=== PATIENT | male | born 2000 | race Caucasian/White ===

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

== ENCOUNTER 2019-01-24 21:51 | Emergency (ER) | payer MEDICAID ==
[2019-01-24 21:53] VITALS: O2SAT 99
--- NOTE | 2019-01-24 22:03 | ERPHSYRPT ---
- History of Present Illness Time Seen by Provider: 01/24/19 21:59 Source: patient, EMS, police Physician History: 18 y/o white male presents via ems at the request of the police. pt here for medical clearance for skilled nursing. pt has been on the run from police for several days. pt has no complaints. Timing/Duration: today Severity of Symptoms-Max: mild Severity of Symptoms-Current: mild Context related to: legal problems Suicidal thoughts: other (no) Associated Symptoms: denies symptoms Previous symptoms: same symptoms as today Allergies/Adverse Reactions: No Known Drug Allergies Allergy (Unverified 12/02/15 00:55) Home Medications: No Reportable Medications [No Reported Medications] 12/01/18 [History] Hx Tetanus, Diphtheria Vaccination/Date Given: Yes Hx Influenza Vaccination/Date Given: No Hx Pneumococcal Vaccination/Date Given: No - Past Medical History Pertinent Past Medical History: No Neurological History: No Pertinent History ENT History: No Pertinent History Cardiac History: No Pertinent History Respiratory History: No Pertinent History Endocrine Medical History: No Pertinent History Musculoskeletal History: No Pertinent History GI Medical History: No Pertinent History History: No Pertinent History Psycho-Social History: Attention Deficit Disorder Male Reproductive Disorders: No Pertinent History - Past Surgical History Past Surgical History: No Neuro Surgical History: No Pertinent History Cardiac: No Pertinent History Respiratory: No Pertinent History Gastrointestinal: No Pertinent History Genitourinary: No Pertinent History Musculoskeletal: No Pertinent History Male Surgical History: No Pertinent History - Social History Smoking Status: Current every day smoker Exposure to second hand smoke: No Drug Use: marijuana, methamphetamines, other Patient Lives Alone: No - Review of Systems Constitutional: No Symptoms Eyes: No Symptoms Ears, Nose, & Throat: No Symptoms Respiratory: No Symptoms Cardiac: No Symptoms Abdominal/Gastrointestinal: No Symptoms Genitourinary Symptoms: No Symptoms Musculoskeletal: No Symptoms Skin: No Symptoms Neurological: No Symptoms Psychological: No Symptoms Endocrine: No Symptoms Hematologic/Lymphatic: No Symptoms Immunological/Allergic: No Symptoms All Other Systems: Reviewed and Negative - Nursing Vital Signs Nursing Vital Signs: Initial Vital Signs Temperature 98.8 F 01/24/19 21:52 Pulse Rate 88 01/24/19 21:52 Respiratory Rate 17 01/24/19 21:52 Blood Pressure 135/83 01/24/19 21:52 O2 Sat by Pulse Oximetry 99 01/24/19 21:52 Pain Scale Pain Intensity 0 - Physical Exam General Appearance: no apparent distress, alert Eyes, Ears, Nose, Throat Exam: normal ENT inspection, moist mucous membranes Neck Exam: normal inspection, non-tender, supple, full range of motion Respiratory Exam: normal breath sounds, lungs clear, airway intact, No chest tenderness, No respiratory distress Cardiovascular Exam: regular rate/rhythm, normal heart sounds, normal peripheral pulses Gastrointestinal/Abdominal Exam: soft, normal bowel sounds, No tenderness Extremities Exam: normal inspection, normal range of motion, No evidence of injury Current Suicidality: denies suicide plan Neurological Exam: alert, normal mood/affect, calm, raw sampler II-XII nml as tested Appearance: no memory impairment, impaired insight Behavior/Eye Contact/Speech: alert & cooperative Thoughts/Hallucinations: normal thought pattern, no apparent hallucination Skin Exam: normal color, warm SpO2 Interpretation: normal SpO2: 99 O2 Delivery: Room Air - Course Nursing assessment & vital signs reviewed: Yes EKG Interpreted by Me: RATE (61), Sinus Rhythm, NORMAL AXIS, NORMAL INTERVALS, NORMAL QRS, Other (no comparison ekg) Ordered Tests: Active Orders 24 hr Category Date Time Status EKG-ER Only STAT Care 01/24/19 22:03 Active IV Insertion STAT Care 01/24/19 22:04 Active BMP Stat Lab 01/24/19 22:00 Completed CBC W DIFF Stat Lab 01/24/19 22:00 Completed ETHYL ALCOHOL Stat Lab 01/24/19 22:00 Completed Urine Triage Profile Stat Lab 01/24/19 22:36 Completed Medication Summary Discontinued Medications Generic Name Dose Route Start Last Admin Trade Name Mahamedq PRN Reason Stop Dose Admin Sodium Chloride 1,000 mls @ 999 mls/hr 01/24/19 22:04 01/24/19 22:36 Sodium Chloride 0.9% 1000 Ml IV 01/24/19 23:04 999 mls/hr .Q1H1M STA Administration Sodium Chloride Confirm 01/24/19 22:28 Sodium Chloride 0.9% 1000 Ml Administered 01/24/19 22:29 Dose 1,000 mls @ ud .ROUTE .STK-MED ONE Ondansetron HCl 4 mg 01/24/19 22:04 01/24/19 22:42 Zofran 4 Mg/2 Ml Vial IV 01/24/19 22:05 4 mg STAT ONE Administration Ondansetron HCl Confirm 01/24/19 22:42 Zofran 4 Mg/2 Ml Vial Administered 01/24/19 22:43 Dose 4 mg .ROUTE .STK-MED ONE Lab/Rad Data: Laboratory Result Diagrams 01/24/19 22:00 01/24/19 22:00 Laboratory Results 01/24/19 01/24/19 01/24/19 Range/Units 22:36 22:00 22:00 WBC 11.5 H (4.0-10.5) K/mm3 RBC 4.39 (4.1-5.6) M/mm3 Hgb 13.3 (12.5-18.0) gm/dl Hct 39.8 L (42-50) % MCV 90.7 (78-100) fl MCH 30.3 (26-32) pg MCHC 33.4 (32-36) g/dl RDW 14.0 (11.5-14.0) % Plt Count 295 (150-450) K/mm3 MPV 9.9 H (6-9.5) fl Gran % 68.9 H (36.0-66.0) % Eos # (Auto) 0.11 (0-0.5) Absolute Lymphs (auto) 2.41 (1.0-4.6) Absolute Monos (auto) 1.03 (0.0-1.3) Lymphocytes % 20.9 L (24.0-44.0) % Monocytes % 8.9 (0.0-12.0) % Eosinophils % 1.0 (0.00-5.0) % Basophils % 0.3 (0.0-0.4) % Absolute Granulocytes 7.93 H (1.4-6.9) Basophils # 0.03 (0-0.4) Sodium 139 (137-145) mmol/L Potassium 3.4 L (3.5-5.1) mmol/L Chloride 103 (98-107) mmol/L Carbon Dioxide 22 (22-30) mmol/L Anion Gap 16.9 H (5-15) MEQ/L BUN 15 (9-20) mg/dL Creatinine 1.08 (0.66-1.25) mg/dL Estimated GFR > 60.0 ML/MIN Glucose 74 (74-106) mg/dL Calcium 9.6 (8.4-10.2) mg/dL Urine Opiates Level NEGATIVE (NEGATIVE) Ur Methadone NEGATIVE (NEGATIVE) Urine Barbiturates NEGATIVE (NEGATIVE) Ur Phencyclidine (PCP) NEGATIVE (NEGATIVE) Urine Amphetamine POSITIVE (NEGATIVE) U Benzodiazepine Level NEGATIVE (NEGATIVE) Urine Cocaine NEGATIVE (NEGATIVE) Urine Marijuana (THC) POSITIVE (NEGATIVE) Ethyl Alcohol (0-10) mg/dL 01/24/19 Range/Units 22:00 WBC (4.0-10.5) K/mm3 RBC (4.1-5.6) M/mm3 Hgb (12.5-18.0) gm/dl Hct (42-50) % MCV (78-100) fl MCH (26-32) pg MCHC (32-36) g/dl RDW (11.5-14.0) % Plt Count (150-450) K/mm3 MPV (6-9.5) fl Gran % (36.0-66.0) % Eos # (Auto) (0-0.5) Absolute Lymphs (auto) (1.0-4.6) Absolute Monos (auto) (0.0-1.3) Lymphocytes % (24.0-44.0) % Monocytes % (0.0-12.0) % Eosinophils % (0.00-5.0) % Basophils % (0.0-0.4) % Absolute Granulocytes (1.4-6.9) Basophils # (0-0.4) Sodium (137-145) mmol/L Potassium (3.5-5.1) mmol/L Chloride (98-107) mmol/L Carbon Dioxide (22-30) mmol/L Anion Gap (5-15) MEQ/L BUN (9-20) mg/dL Creatinine (0.66-1.25) mg/dL Estimated GFR ML/MIN Glucose (74-106) mg/dL Calcium (8.4-10.2) mg/dL Urine Opiates Level (NEGATIVE) Ur Methadone (NEGATIVE) Urine Barbiturates (NEGATIVE) Ur Phencyclidine (PCP) (NEGATIVE) Urine Amphetamine (NEGATIVE) U Benzodiazepine Level (NEGATIVE) Urine Cocaine (NEGATIVE) Urine Marijuana (THC) (NEGATIVE) Ethyl Alcohol < 10 (0-10) mg/dL - Progress Progress: improved, re-examined Counseled pt/family regarding: lab results, diagnosis - Departure Departure Disposition: Care Home/Assisted Clinical Impression: Amphetamine addiction, Marijuana smoker, Medical clearance for incarceration Condition: Stable Critical Care Time: No Referrals: LUKASZ CALLAWAY [Primary Care Provider] -
[2019-01-24] MEDS ORDERED: Sodium Chloride 0.9% 1000 ML 1,000 ML IV STA (22:04)
[2019-01-24] MEDS ORDERED: Zofran 4 MG/2 ML VIAL IV ONE (22:04)
[2019-01-24 22:22] LABS: BASOPHIL % 0.3 % (0.0-0.4); Basophil (Absolute #) 0.03 (0-0.4); Eosinophil (Absolute #) 0.11 (0-0.5); Granulocyte Absolute (ANC) 7.93 (1.4-6.9); Granulocytes % 68.9 % (36.0-66.0); Hematocrit 39.8 % (42-50); Hemoglobin 13.3 gm/dl (12.5-18.0); Lymphocyte (Absolute #) 2.41 (1.0-4.6); Lymphocytes % 20.9 % (24.0-44.0); Mean Cell Volume 90.7 fl (78-100); Mean Corpuscular Hemoglobin 30.3 pg (26-32); Mean Corpuscular Hgb Concent. 33.4 g/dl (32-36); Mean Platelet Volume 9.9 fl (6-9.5); Monocyte (Absolute #) 1.03 (0.0-1.3); Monocytes % 8.9 % (0.0-12.0); Platelet Count 295 K/mm3 (150-450); Red Blood Count 4.39 M/mm3 (4.1-5.6); White Blood Count 11.5 K/mm3 (4.0-10.5)
[2019-01-24] MEDS ORDERED: Sodium Chloride 0.9% 1000 ML 1,000 ML ONE (22:28)
[2019-01-24 22:35] LABS: ANION GAP 16.9 MEQ/L (5-15); BLOOD UREA NITROGEN 15 mg/dL (9-20); CHLORIDE 103 mmol/L (98-107); Calcium 9.6 mg/dL (8.4-10.2); Carbon Dioxide 22 mmol/L (22-30); Creatinine 1 1.08 mg/dL (0.66-1.25); Glucose 74 mg/dL (74-106); Potassium 3.4 mmol/L (3.5-5.1); SODIUM 139 mmol/L (137-145)
[2019-01-24] MEDS ORDERED: Zofran 4 MG/2 ML VIAL ONE (22:42)
[2019-01-24 22:57] LABS: Barbiturate,Urine NEGATIVE (NEGATIVE); Benzodiazepine,Urine NEGATIVE (NEGATIVE); Cocaine,Urine NEGATIVE (NEGATIVE); Methadone,Urine NEGATIVE (NEGATIVE); Opiate,Urine NEGATIVE (NEGATIVE); PCP,Urine NEGATIVE (NEGATIVE); THC,Urine POSITIVE (NEGATIVE)
[2019-01-24 23:32] LABS: Amphetamine,Urine POSITIVE (NEGATIVE)
[2019-01-25 00:35] VITALS: BP 120/73; PULSE 96
== END 2019-01-25 00:36 | disposition home or self-care (01) ==
LOC: ED 21:51
DX: F15.20 Other stimulant dependence, uncomplicated (principal); F12.90 Cannabis use, unspecified, uncomplicated; Z02.89 Encounter for other administrative examinations
CPT/HCPCS: 36000; 36415; 80048; 80307; 85025; 93005; 96374; 99284; J2405; G0480

== ENCOUNTER 2021-07-28 20:05 | Emergency (ER) | payer MEDICAID ==
[2021-07-28 20:51] LABS: Absolute Neutrophil Ct (ANC) 7.58 (1.4-6.9); BASOPHIL % 0.3 % (0.0-0.4); Basophil (Absolute #) 0.03 (0-0.4); Eosinophil % 0.3 % (0.00-5.0); Eosinophil (Absolute #) 0.03 (0-0.5); Hematocrit 42.5 % (42-50); Hemoglobin 14.3 gm/dl (12.5-18.0); Lymphocyte (Absolute #) 1.85 (1.0-4.6); Lymphocytes % 18.3 % (24.0-44.0); Mean Cell Volume 90.4 fl (78-100); Mean Corpuscular Hemoglobin 30.4 pg (26-32); Mean Corpuscular Hgb Concent. 33.6 g/dl (32-36); Mean Platelet Volume 10.4 fl (7.5-11.0); Monocyte (Absolute #) 0.64 (0.0-1.3); Monocytes % 6.3 % (0.0-12.0); Neutrophil % 74.8 % (36.0-66.0); Platelet Count 292 K/mm3 (150-450); Red Cell Distribution Width 13.2 % (11.5-14.0); White Blood Count 10.1 K/mm3 (4.0-10.5)
[2021-07-28 20:59] LABS: ACETAMINOPHEN < 10 ug/ml (10-30); ALBUMIN 4.8 g/dL (3.5-5.0); ALKALINE PHOSPHATASE 101 U/L (38-126); ANION GAP 16.9 MEQ/L (5-15); BLOOD UREA NITROGEN 12 mg/dL (9-20); CHLORIDE 102 mmol/L (98-107); Calcium 9.7 mg/dL (8.4-10.2); Carbon Dioxide 24 mmol/L (22-30); Creatinine 1 1.15 mg/dL (0.66-1.25); EST GLOMERULAR FILTRATION RATE > 60.0 ML/MIN; ETHYL ALCOHOL < 10 mg/dL (0-10); Glucose 98 mg/dL (74-106); Potassium 3.9 mmol/L (3.5-5.1); SGOT/AST 29 U/L (17-59); SGPT/ALT 20 U/L (0-50); SODIUM 139 mmol/L (137-145); Total Protein 7.9 g/dL (6.3-8.2)
--- NOTE | 2021-07-28 22:55 | ERPHSYRPT ---
- History of Present Illness Time Seen by Provider: 07/28/21 20:09 Source: patient, police Exam Limitations: no limitations Physician History: 20-year-old male is brought in the ER by PD after he texted his sister "today is going to be the last day and life is over for me". Patient report he has arguments with his girlfriend all the time and is very frustrated about it. Patient reports he does not trust her. He made some suicidal comments about crashing his car at high-speed but denies any homicidal ideations. Denies having suicidal ideations in the past. Patient reports he is making these comments to get some attention and did not mean it. Timing/Duration: week(s), gradual onset, worse Severity of Symptoms-Max: moderate Severity of Symptoms-Current: moderate Context related to: spouse Suicidal thoughts: gesture Associated Symptoms: agitated, anxiety, frustrated, suicidal ideation Allergies/Adverse Reactions: No Known Drug Allergies Allergy (Verified 07/29/21 00:47) Home Medications: No Reportable Medications [No Reported Medications] 12/01/18 [History] Hx Tetanus, Diphtheria Vaccination/Date Given: Yes Hx Influenza Vaccination/Date Given: No Hx Pneumococcal Vaccination/Date Given: No Travel Risk - International Travel Have you traveled outside of the country in past 3 weeks: No - Coronavirus Screening Are you exhibiting any of the following symptoms?: No Close contact with a COVID-19 positive Pt in past 14-21 Days: No - Past Medical History Pertinent Past Medical History: No Neurological History: No Pertinent History ENT History: No Pertinent History Cardiac History: No Pertinent History Respiratory History: No Pertinent History Endocrine Medical History: No Pertinent History Musculoskeletal History: No Pertinent History GI Medical History: No Pertinent History History: No Pertinent History Psycho-Social History: Attention Deficit Disorder Male Reproductive Disorders: No Pertinent History - Past Surgical History Past Surgical History: No Neuro Surgical History: No Pertinent History Cardiac: No Pertinent History Respiratory: No Pertinent History Gastrointestinal: No Pertinent History Genitourinary: No Pertinent History Musculoskeletal: No Pertinent History Male Surgical History: No Pertinent History - Social History Smoking Status: Current every day smoker How long have you smoked: 2 Exposure to second hand smoke: No Drug Use: marijuana, methamphetamines, other Patient Lives Alone: No - Review of Systems Constitutional: No Symptoms Eyes: No Symptoms Ears, Nose, & Throat: No Symptoms Respiratory: No Symptoms Cardiac: No Symptoms Abdominal/Gastrointestinal: No Symptoms Genitourinary Symptoms: No Symptoms Musculoskeletal: No Symptoms Skin: No Symptoms Neurological: No Symptoms Psychological: Anxiety, Depression, Suicidal Ideations, Emotional Lability Endocrine: No Symptoms Hematologic/Lymphatic: No Symptoms Immunological/Allergic: No Symptoms - Nursing Vital Signs Nursing Vital Signs: Initial Vital Signs Temperature 97.8 F 07/28/21 20:07 Pulse Rate 110 H 07/28/21 20:07 Respiratory Rate 16 07/28/21 20:07 Blood Pressure 145/89 07/28/21 20:07 O2 Sat by Pulse Oximetry 100 07/28/21 20:07 Pain Scale Pain Intensity 0 - Physical Exam General Appearance: no apparent distress, alert, anxiety Eyes, Ears, Nose, Throat Exam: normal ENT inspection Neck Exam: normal inspection, supple, full range of motion Respiratory Exam: normal breath sounds, lungs clear Cardiovascular Exam: normal heart sounds, tachycardia Gastrointestinal/Abdominal Exam: soft, normal bowel sounds, No tenderness Extremities Exam: normal inspection, normal range of motion Neurological Exam: alert, calm, vamp wetter II-XII nml as tested, oriented x 3, No normal mood/affect Appearance: appropriate appearance, appropriate insight, neat, no memory impairment Behavior/Eye Contact/Speech: alert & cooperative, cooperative, good eye contact, normal speech Thoughts/Hallucinations: normal thought pattern, no apparent hallucination Skin Exam: normal color SpO2 Interpretation: normal SpO2: 100 O2 Delivery: Room Air Ordered Tests: Active Orders 24 hr Category Date Time Status ACETAMINOPHEN Stat Lab 07/28/21 20:40 Completed CBC W DIFF Stat Lab 07/28/21 20:40 Completed CMP Stat Lab 07/28/21 20:40 Completed CULTURE,URINE Stat Lab 07/28/21 23:13 Received ETHYL ALCOHOL Stat Lab 07/28/21 20:40 Completed SALICYLATE Stat Lab 07/28/21 20:40 Completed UA W/RFX UR CULTURE Stat Lab 07/28/21 23:13 Completed Urine Triage Profile Stat Lab 07/28/21 23:13 Completed Lab/Rad Data: Laboratory Result Diagrams 07/28/21 20:40 07/28/21 20:40 Laboratory Results 07/28/21 07/28/21 07/28/21 Range/Units 23:20 23:13 23:13 WBC (4.0-10.5) K/mm3 RBC (4.1-5.6) M/mm3 Hgb (12.5-18.0) gm/dl Hct (42-50) % MCV (78-100) fl MCH (26-32) pg MCHC (32-36) g/dl RDW (11.5-14.0) % Plt Count (150-450) K/mm3 MPV (7.5-11.0) fl Gran % (36.0-66.0) % Eos # (Auto) (0-0.5) Absolute Lymphs (auto) (1.0-4.6) Absolute Monos (auto) (0.0-1.3) Lymphocytes % (24.0-44.0) % Monocytes % (0.0-12.0) % Eosinophils % (0.00-5.0) % Basophils % (0.0-0.4) % Absolute Granulocytes (1.4-6.9) Basophils # (0-0.4) Sodium (137-145) mmol/L Potassium (3.5-5.1) mmol/L Chloride (98-107) mmol/L Carbon Dioxide (22-30) mmol/L Anion Gap (5-15) MEQ/L BUN (9-20) mg/dL Creatinine (0.66-1.25) mg/dL Estimated GFR ML/MIN Glucose (74-106) mg/dL Calcium (8.4-10.2) mg/dL Total Bilirubin (0.2-1.3) mg/dL AST (17-59) U/L ALT (0-50) U/L Alkaline Phosphatase (38-126) U/L Serum Total Protein (6.3-8.2) g/dL Albumin (3.5-5.0) g/dL Urine Color YELLOW (YELLOW) Urine Appearance SLIGHTLY CLOUDY (CLEAR) Urine pH 5.0 (5-6) Ur Specific [place] 1.026 (1.005-1.025) Urine Protein 30 (Negative) Urine Ketones TRACE (NEGATIVE) Urine Blood NEGATIVE (0-5) Charanjit/ul Urine Nitrite NEGATIVE (NEGATIVE) Urine Bilirubin NEGATIVE (NEGATIVE) Urine Urobilinogen NEGATIVE (0-1) mg/dL Ur Leukocyte Esterase SMALL (NEGATIVE) Urine WBC (Auto) 26-50 (0-5) /HPF Urine RBC (Auto) 6-10 (0-2) /HPF U Epithel Cells (Auto) NONE (FEW) /HPF Urine Bacteria (Auto) FEW (NEGATIVE) /HPF Urine Mucus (Auto) SLIGHT (NEGATIVE) /HPF Urine Culture Reflexed YES (NO) Urine Glucose NEGATIVE (NEGATIVE) mg/dL Salicylates (2-20) mg/dL Urine Opiates Level NEGATIVE (NEGATIVE) Ur Methadone NEGATIVE (NEGATIVE) Acetaminophen (10-30) ug/ml Urine Barbiturates NEGATIVE (NEGATIVE) Ur Phencyclidine (PCP) NEGATIVE (NEGATIVE) Urine Amphetamine POSITIVE (NEGATIVE) U Benzodiazepine Level NEGATIVE (NEGATIVE) Urine Cocaine POSITIVE (NEGATIVE) Urine Marijuana (THC) POSITIVE (NEGATIVE) Ethyl Alcohol (0-10) mg/dL SARS-CoV-2 Ag (Rapid) NEGATIVE (NEGATIVE) 07/28/21 07/28/21 07/28/21 Range/Units 20:40 20:40 20:40 WBC 10.1 (4.0-10.5) K/mm3 RBC 4.70 (4.1-5.6) M/mm3 Hgb 14.3 (12.5-18.0) gm/dl Hct 42.5 (42-50) % MCV 90.4 (78-100) fl MCH 30.4 (26-32) pg MCHC 33.6 (32-36) g/dl RDW 13.2 (11.5-14.0) % Plt Count 292 (150-450) K/mm3 MPV 10.4 (7.5-11.0) fl Gran % 74.8 H (36.0-66.0) % Eos # (Auto) 0.03 (0-0.5) Absolute Lymphs (auto) 1.85 (1.0-4.6) Absolute Monos (auto) 0.64 (0.0-1.3) Lymphocytes % 18.3 L (24.0-44.0) % Monocytes % 6.3 (0.0-12.0) % Eosinophils % 0.3 (0.00-5.0) % Basophils % 0.3 (0.0-0.4) % Absolute Granulocytes 7.58 H (1.4-6.9) Basophils # 0.03 (0-0.4) Sodium 139 (137-145) mmol/L Potassium 3.9 (3.5-5.1) mmol/L Chloride 102 (98-107) mmol/L Carbon Dioxide 24 (22-30) mmol/L Anion Gap 16.9 H (5-15) MEQ/L BUN 12 (9-20) mg/dL Creatinine 1.15 (0.66-1.25) mg/dL Estimated GFR > 60.0 ML/MIN Glucose 98 (74-106) mg/dL Calcium 9.7 (8.4-10.2) mg/dL Total Bilirubin 1.50 H (0.2-1.3) mg/dL AST 29 (17-59) U/L ALT 20 (0-50) U/L Alkaline Phosphatase 101 (38-126) U/L Serum Total Protein 7.9 (6.3-8.2) g/dL Albumin 4.8 (3.5-5.0) g/dL Urine Color (YELLOW) Urine Appearance (CLEAR) Urine pH (5-6) Ur Specific [place] (1.005-1.025) Urine Protein (Negative) Urine Ketones (NEGATIVE) Urine Blood (0-5) Charanjit/ul Urine Nitrite (NEGATIVE) Urine Bilirubin (NEGATIVE) Urine Urobilinogen (0-1) mg/dL Ur Leukocyte Esterase (NEGATIVE) Urine WBC (Auto) (0-5) /HPF Urine RBC (Auto) (0-2) /HPF U Epithel Cells (Auto) (FEW) /HPF Urine Bacteria (Auto) (NEGATIVE) /HPF Urine Mucus (Auto) (NEGATIVE) /HPF Urine Culture Reflexed (NO) Urine Glucose (NEGATIVE) mg/dL Salicylates < 1.0 L (2-20) mg/dL Urine Opiates Level (NEGATIVE) Ur Methadone (NEGATIVE) Acetaminophen < 10 L (10-30) ug/ml Urine Barbiturates (NEGATIVE) Ur Phencyclidine (PCP) (NEGATIVE) Urine Amphetamine (NEGATIVE) U Benzodiazepine Level (NEGATIVE) Urine Cocaine (NEGATIVE) Urine Marijuana (THC) (NEGATIVE) Ethyl Alcohol < 10 (0-10) mg/dL SARS-CoV-2 Ag (Rapid) (NEGATIVE) - Progress Progress: unchanged Progress Note: 07/28/21 22:54 He is medically cleared. Behavioral evaluation/placement is pending. 07/29/21 02:01 Patient is accepted for transfer at [facility] by Dr. Alicea Counseled pt/family regarding: lab results, diagnosis, need for follow-up - Departure Departure Disposition: Transfer Clinical Impression: Suicidal ideations, Polysubstance abuse Condition: Stable Critical Care Time: No Referrals: DOCTOR,NO FAMILY [Primary Care Provider] - Follow up/PCP as directed
[2021-07-28 23:43] LABS: Appearance SLIGHTLY CLOUDY (CLEAR); Bacteria FEW /HPF (NEGATIVE); Bilirubin NEGATIVE (NEGATIVE); Blood NEGATIVE Ery/ul (0-5); Glucose NEGATIVE (NEGATIVE); Ketones TRACE (NEGATIVE); Leukocyte Esterase SMALL (NEGATIVE); Mucus SLIGHT /HPF (NEGATIVE); Nitrite NEGATIVE (NEGATIVE); Protein,Urine Dip 30 (Negative); Specific Gravity 1.026 (1.005-1.025); Urobilinogen NEGATIVE mg/dL (0-1); WBC 26-50 /HPF (0-5)
[2021-07-28 23:51] LABS: Barbiturate,Urine NEGATIVE (NEGATIVE); Benzodiazepine,Urine NEGATIVE (NEGATIVE); Cocaine,Urine POSITIVE (NEGATIVE); Methadone,Urine NEGATIVE (NEGATIVE); Opiate,Urine NEGATIVE (NEGATIVE); PCP,Urine NEGATIVE (NEGATIVE); THC,Urine POSITIVE (NEGATIVE)
[2021-07-29 00:39] LABS: Amphetamine,Urine POSITIVE (NEGATIVE)
[2021-07-29 01:35] LABS: COVID AG -BINAX NOW RAPID TEST NEGATIVE (NEGATIVE)
== END 2021-07-29 05:18 | disposition short-term general hospital (02) ==
LOC: ED 20:05
DX: R45.851 Suicidal ideations (principal); F19.10 Other psychoactive substance abuse, uncomplicated
CPT/HCPCS: 36415; 80053; 80307; 81001; 85025; 87086; 99000; 99284; G0480

== ENCOUNTER 2021-11-29 18:37 | Emergency (ER) | payer SELFPAY ==
--- NOTE | 2021-11-29 19:25 | ERPHSYRPT ---
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 He was sent for x-rays and because the radiology department would not give him results immediately he signed into the ER. He complains of numbness and pain and swelling in the right ankle and foot. Method of Injury: twisted Occurred: this morning Quality: constant Severity of Pain-Max: moderate Severity of Pain-Current: moderate Lower Extremities Pain: foot: right, ankle: right Modifying Factors: Improves With: movement Associated Symptoms: unable to bear weight Allergies/Adverse Reactions: No Known Drug Allergies Allergy (Verified 07/29/21 00:47) Hx Tetanus, Diphtheria Vaccination/Date Given: Yes Hx Influenza Vaccination/Date Given: No Hx Pneumococcal Vaccination/Date Given: No Travel Risk - Vaccine Status Have you recieved a Covid-19 vaccination: No - Review of Systems Constitutional: No Fever, No Chills Eyes: No Symptoms Ears, Nose, & Throat: No Symptoms Respiratory: No Cough, No Dyspnea Cardiac: No Chest Pain, No Edema, No Syncope Abdominal/Gastrointestinal: No Abdominal Pain, No Nausea, No Vomiting, No Abbey rrhea Genitourinary Symptoms: No Dysuria Musculoskeletal: No Back Pain, No Neck Pain Skin: No Rash Neurological: No Dizziness, No Focal Weakness, No Sensory Changes Psychological: No Symptoms Endocrine: No Symptoms All Other Systems: Reviewed and Negative - Past Medical History Pertinent Past Medical History: No Neurological History: No Pertinent History ENT History: No Pertinent History Cardiac History: No Pertinent History Respiratory History: No Pertinent History Endocrine Medical History: No Pertinent History Musculoskeletal History: No Pertinent History GI Medical History: No Pertinent History History: No Pertinent History Psycho-Social History: Attention Deficit Disorder Male Reproductive Disorders: No Pertinent History - Past Surgical History Past Surgical History: No Neuro Surgical History: No Pertinent History Cardiac: No Pertinent History Respiratory: No Pertinent History Gastrointestinal: No Pertinent History Genitourinary: No Pertinent History Musculoskeletal: No Pertinent History Male Surgical History: No Pertinent History - Social History Smoking Status: Current every day smoker How long have you smoked: 2 Exposure to second hand smoke: No Drug Use: marijuana, methamphetamines, other Patient Lives Alone: No - Physical Exam General Appearance: mild distress Eyes, Ears, Nose, Throat Exam: normal ENT inspection Neck Exam: normal inspection, non-tender, supple Hips Exam: bilateral: non-tender, normal inspection, normal range of motion Legs Exam: bilateral leg: non-tender, normal inspection, normal range of motion Knees Exam: bilateral knee: non-tender, normal inspection, normal range of motion Ankle Exam: right ankle: bone tenderness, limited range of motion, pain, soft tissue tenderness, swelling, left ankle: non-tender, normal inspection, normal range of motion Foot Exam: right foot: bone tenderness, limited range of motion, pain, soft tissue tenderness, swelling, left foot: non-tender, normal inspection, normal range of motion, no evidence of injury Neuro/Tendon Exam: normal sensation, normal motor functions, normal tendon functions Mental Status Exam: alert, oriented x 3, cooperative Skin Exam: normal color, warm, dry SpO2 Interpretation: normal O2 Delivery: Room Air Procedures - Splinting Time of Procedure: 19:24 Location of Splint: Right, Foot, Ankle Type of Splint: Walking Boot/Shoe Splint Applied By: ED Nurse Pre-Proc Neuro Vasc Exam: normal Post-Proc Neuro Vasc Exam: neurovascular intact - Course Nursing assessment & vital signs reviewed: Yes - Radiology Exams Ankle X-ray Interpretation: Interpreted by me, Negative Right Foot X-ray Interpretation: Interpreted by me, Negative - Progress Progress: improved - Departure Departure Disposition: Home Clinical Impression: Ankle sprain Condition: Stable Critical Care Time: No Referrals: DOCTOR,NO FAMILY [Primary Care Provider] - Follow up/PCP as directed Instructions: Ankle Sprain (DC) Prescriptions: Diclofenac Sodium 50 mg [Voltaren 50 mg] 50 mg PO Q8H 21 Days #30 cap
[2021-11-29] MEDS ORDERED: NORCO 5/325 MG PO ONE (19:28)
[2021-11-29] MEDS ORDERED: NORCO 5/325 MG ONE (19:35)
[2021-11-29 20:16] VITALS: BP 130/80; PULSE 74; O2SAT 98
== END 2021-11-29 20:17 | disposition home or self-care (01) ==
LOC: ED 18:37
DX: S93.401A Sprain of unspecified ligament of right ankle, initial encounter (principal); X50.0XXA Overexertion from strenuous movement or load, initial encounter; Y93.39 Activity, other involving climbing, rappelling and jumping off; Y92.69 Other specified industrial and construction area as the place of occurrence of the external cause; Y99.0 Civilian activity done for income or pay; Z72.0 Tobacco use
CPT/HCPCS: 99283; L4386; A9270-GY